=== PATIENT | female | born 1965 | race Asian ===

== ENCOUNTER 2020-07-30 15:51 | Emergency (ER) | payer BC, SELFPAY ==
[~2020-07-30] VITALS: Ht 160 cm; Wt 64.0 kg
--- NOTE | 2020-07-30 15:52 | NUR ---
Pt placed in the tent at this time
--- NOTE | 2020-07-30 15:53 | NUR ---
Pt brought by self,A&OX4, pt presents to ER with mild cough, pt states she was diagnosed with covid 11 days ago, pt states she has been taking Z-pack for one week after X-ray indicated pneumonia, pt here for follow up, afebrile, skin pink and warm, cap refill <3, VSS.
--- NOTE | 2020-07-30 15:55 | NUR ---
Dr Jay evaluating patient at bedside
[2020-07-30 16:15] VITALS: BP_SYST 127
[2020-07-30 16:50] VITALS: BP_SYST 127
--- NOTE | 2020-07-30 16:50 | NUR ---
Patient given written and verbal discharge instructions and verbalizes understanding. ER MD discussed with patient the results and treatment provided. Patient in stable condition. ID arm band removed. No Rx given. Patient educated on pain management and to follow up with PMD. Pain Scale 0/10. Opportunity for questions provided and answered. Medication side effect fact sheet provided.
== END 2020-07-30 16:50 | disposition home or self-care (01) ==
LOC: SED 15:51
DX: U07.1 COVID-19 (principal); E78.5 Hyperlipidemia, unspecified
CPT/HCPCS: 99281